=== PATIENT | female | born 1995 | race Caucasian/White ===

== ENCOUNTER 2019-10-28 04:03 | Emergency (ER) | payer MEDICAID ==
[~2019-10-28] VITALS: Ht 160 cm; Wt 98.6 kg
[~2019-10-28 04:03] MED LIST: ARIP5TAB14 PO; ESCI20TA29 PO; IBUP-1985 PO
[2019-10-28 04:07] VITALS: BP 132/96
--- NOTE | 2019-10-28 04:17 | NUR ---
PT BECAME VERY ANXIOUS AND TEARFUL DURING EDMD MURRIETA ASSESSMENT. PT STATES "I JUST WANT TO GO HOME. I JUST WANT TO LEAVE." ATTEMPTED TO TALK WITH PT AND CONTINUE ASSESSMENTS BUT PT INSISTED ON LEAVING.
== END 2019-10-28 04:20 | disposition home or self-care (01) ==
LOC: ER 04:03
DX: F41.9 Anxiety disorder, unspecified (principal); F15.10 Other stimulant abuse, uncomplicated; R00.0 Tachycardia, unspecified; F32.9 Major depressive disorder, single episode, unspecified; Z79.899 Other long term (current) drug therapy
CPT/HCPCS: 93005; 99283

== ENCOUNTER 2019-11-16 16:58 | Emergency (ER) | payer MEDICAID ==
[~2019-11-16] VITALS: Ht 160 cm; Wt 111.0 kg
[2019-11-16 17:47] LABS: BASOPHILS # (AUTO) 0.1 X10'3 (0-0.2); BASOPHILS % (AUTO) 1.2 % (0-1); EOSINOPHILS # (AUTO) 0.2 X10'3 (0-0.9); EOSINOPHILS % (AUTO) 1.7 % (0-6); HEMATOCRIT 33.6 % (35.0-45.0); LYMPHOCYTES # (AUTO) 2.7 X10'3 (1.1-4.8); LYMPHOCYTES % (AUTO) 27.8 % (21-51); MEAN CORPUSCULAR HEMOGLOBIN 26.7 PG (27.0-31.0); MEAN CORPUSCULAR HGB CONC 32.7 g/dL (33.0-36.5); MEAN CORPUSCULAR VOLUME 81.8 FL (78-98); MEAN PLATELET VOLUME 8.8 FL (7.4-10.4); MONOCYTES # (AUTO) 0.9 X10'3 (0-0.9); NEUTROPHILS # (AUTO) 5.8 X10'3 (1.8-7.7); NEUTROPHILS % (AUTO) 60.3 % (42-75); PLATELET COUNT 443 X10'3 (140-440); RED BLOOD COUNT 4.11 X10'6 (4.20-5.60); RED CELL DISTRIBUTION WIDTH 13.1 % (11.5-14.5); WHITE BLOOD COUNT 9.6 X10'3 (4.5-11.0)
[2019-11-16 18:03] LABS: ALANINE AMINOTRANSFERASE 8 U/L (12-78); ALBUMIN 2.8 G/DL (3.4-5.0); ALBUMIN/GLOBULIN RATIO 0.6 (1.1-1.5); ALKALINE PHOSPHATASE 66 IU/L (46-116); ANION GAP 8 (8-16); ASPARTATE AMINO TRANSFERASE 11 U/L (10-37); BILIRUBIN,TOTAL 0.2 MG/DL (0.1-1.0); BLOOD UREA NITROGEN 13 MG/DL (7-18); BUN/CREATININE RATIO 14.1 (6.6-38.0); CALCIUM 8.2 MG/DL (8.5-10.1); CHLORIDE 107 MMOL/L (99-107); CREATININE 0.92 MG/DL (0.40-0.90); GLUCOSE 90 MG/DL (70-104); PARTIAL THROMBOPLASTIN TIME 27 SECONDS (22-32); POTASSIUM 3.5 MMOL/L (3.5-5.1); SODIUM 141 MMOL/L (135-145); TOTAL PROTEIN 7.6 G/DL (6.4-8.2); eGFR 76 ML/MIN
[2019-11-16] MEDS ORDERED: metoprolol tartrate 1mg/ml inj IV ONE (18:30)
[2019-11-16] MEDS ORDERED: furosemide 10 MG/1 ML 10ml inj IV ONE (18:30)
[2019-11-16] MEDS ORDERED: LORazepam 2 mg/ml vial IV ONE (18:30)
[2019-11-16 19:47] LABS: CLARITY,URINE CLOUDY (Clear); COLOR,URINE RED (Yellow); GLUCOSE, URINE NEGATIVE (Neg); KETONES,URINE NEGATIVE (Neg); LEUKOCYTE ESTERASE ,URINE TRACE (Neg); NITRITES, URINE NEGATIVE (Neg); OCCULT BLOOD,URINE LARGE (Neg); PROTEIN,URINE 100 mg/dl (Neg); URINE HCG NEGATIVE (NEG); UROBILINOGEN,URINE 0.2 E.U/dL (0.2-1.0)
[2019-11-16 19:48] LABS: UA COLLECTION TYPE CLN CATCH MIDSTREAM
[2019-11-16 19:54] LABS: RBC,URINE 50-100 /HPF (0-2); WBC,URINE 0-4 /HPF (0-4)
[2019-11-16 19:55] LABS: BACTERIA,URINE 3+ /HPF (Neg); SQUAMOUS EPITHELIAL CELL,UR FEW /LPF (FEW)
[2019-11-16 19:59] LABS: URINE AMPHETAMINE SCREEN NEGATIVE (Neg); URINE BARBITUATE SCREEN NEGATIVE (Neg); URINE BENZODIAZEPINES SCREEN NEGATIVE (Neg); URINE CANNABINOID SCREEN POSITIVE (Neg); URINE COCAINE SCREEN NEGATIVE (Neg); URINE METHADONE SCREEN NEGATIVE (Neg); URINE OPIATE SCREEN NEGATIVE (Neg); URINE PHENCYCLIDINE SCREEN NEGATIVE (Neg)
[2019-11-16] MEDS ORDERED: METO25TA6 PO (20:59)
[2019-11-16] MEDS ORDERED: FURO-149 PO (20:59)
[2019-11-16] MEDS ORDERED: POTA20TA10 PO (20:59)
[2019-11-16 23:03] VITALS: BP 155/95
== END 2019-11-16 21:35 | disposition home or self-care (01) ==
LOC: ER 16:59
DX: I50.9 Heart failure, unspecified (principal); I11.0 Hypertensive heart disease with heart failure; R06.02 Shortness of breath; R10.9 Unspecified abdominal pain; M79.89 Other specified soft tissue disorders; F41.9 Anxiety disorder, unspecified; F32.9 Major depressive disorder, single episode, unspecified; Z79.899 Other long term (current) drug therapy
CPT/HCPCS: 36415; 71045; 74176; 80053; 80305; 81001; 81025; 83880; 84443; 84484; 85025; 85610; 85730; 87088; 93005; 93306; 96374; 96375; 99285; J1940; J2060; J3490

== ENCOUNTER 2019-11-19 10:29 | Inpatient (IN) | payer MEDICAID ==
[~2019-11-19] VITALS: Ht 160 cm; Wt 104.5 kg
[~2019-11-19 10:29] MED LIST changes: +FURO-149 PO; +METO25TA6 PO; +POTA20TA10 PO
[2019-11-19 11:50] LABS: CLARITY,URINE SLIGHTLY CLOUDY (Clear); COLOR,URINE YELLOW (Yellow); GLUCOSE, URINE NEGATIVE (Neg); KETONES,URINE NEGATIVE (Neg); LEUKOCYTE ESTERASE ,URINE SMALL (Neg); NITRITES, URINE NEGATIVE (Neg); OCCULT BLOOD,URINE LARGE (Neg); PROTEIN,URINE 100 mg/dl (Neg); UROBILINOGEN,URINE 0.2 E.U/dL (0.2-1.0)
[2019-11-19 11:52] LABS: URINE HCG NEGATIVE (NEG)
[2019-11-19 11:55] LABS: UA COLLECTION TYPE CLN CATCH MIDSTREAM
[2019-11-19 11:56] LABS: BACTERIA,URINE FEW /HPF (Neg); MUCUS STRANDS FEW /LPF (Neg); RBC,URINE TNTC /HPF (0-2); SQUAMOUS EPITHELIAL CELL,UR MODERATE /LPF (FEW)
[2019-11-19 12:15] LABS: ABG BASE EXCESS 2.1 mmol/L (-2.0-2.0); ABG HCO3 24.7 mmol/L (22.0-26.0); ABG OXYGEN SATURATION 94.6 % (94-97); ABG PCO2 (T) 31.7 mmHg (32.0-45.0); ABG PO2 (T) 67.8 mmHg (75.0-100.0); ALLEN'S TEST POSITIVE; FO2Hb 94.6 % (94-97); TOTAL HEMOGLOBIN 11.8 G/dl (12.0-16.0)
[2019-11-19 12:16] LABS: BASOPHILS # (AUTO) 0.1 X10'3 (0-0.2); BASOPHILS % (AUTO) 1.1 % (0-1); EOSINOPHILS # (AUTO) 0.1 X10'3 (0-0.9); EOSINOPHILS % (AUTO) 1.1 % (0-6); HEMATOCRIT 34.3 % (35.0-45.0); HEMOGLOBIN 11.3 g/dl (12.0-16.0); LYMPHOCYTES # (AUTO) 1.8 X10'3 (1.1-4.8); LYMPHOCYTES % (AUTO) 21.5 % (21-51); MEAN CORPUSCULAR HEMOGLOBIN 26.6 PG (27.0-31.0); MEAN CORPUSCULAR VOLUME 80.7 FL (78-98); MEAN PLATELET VOLUME 8.3 FL (7.4-10.4); MONOCYTES # (AUTO) 0.6 X10'3 (0-0.9); MONOCYTES % (AUTO) 7.4 % (2-12); NEUTROPHILS # (AUTO) 5.8 X10'3 (1.8-7.7); NEUTROPHILS % (AUTO) 68.9 % (42-75); PLATELET COUNT 471 X10'3 (140-440); RED BLOOD COUNT 4.24 X10'6 (4.20-5.60); RED CELL DISTRIBUTION WIDTH 13.2 % (11.5-14.5); WHITE BLOOD COUNT 8.5 X10'3 (4.5-11.0)
[2019-11-19 12:28] LABS: D-DIMER 1.33 MG/L FEU (0-0.50); PARTIAL THROMBOPLASTIN TIME 26 SECONDS (22-32)
[2019-11-19 12:31] LABS: ALANINE AMINOTRANSFERASE 10 U/L (12-78); ALBUMIN 2.9 G/DL (3.4-5.0); ALBUMIN/GLOBULIN RATIO 0.6 (1.1-1.5); ALKALINE PHOSPHATASE 57 IU/L (46-116); ANION GAP 9 (8-16); ASPARTATE AMINO TRANSFERASE 16 U/L (10-37); BILIRUBIN,TOTAL 0.3 MG/DL (0.1-1.0); BLOOD UREA NITROGEN 13 MG/DL (7-18); CALCIUM 8.5 MG/DL (8.5-10.1); CHLORIDE 108 MMOL/L (99-107); CREATININE 0.81 MG/DL (0.40-0.90); GLUCOSE 96 MG/DL (70-104); POTASSIUM 3.7 MMOL/L (3.5-5.1); SODIUM 144 MMOL/L (135-145); TOTAL CARBON DIOXIDE 27.3 MMOL/L (24-32); TOTAL PROTEIN 7.5 G/DL (6.4-8.2); eGFR 88 ML/MIN
[2019-11-19 12:43] LABS: MAGNESIUM 1.6 MG/DL (1.5-2.4)
[2019-11-19] MEDS ORDERED: LISI2.5T2 PO (12:54)
[2019-11-19] MEDS ORDERED: iohexol 350MG/ML 100ml bottle IV ONE (13:39)
--- NOTE | 2019-11-19 14:31 | NUR ---
to ct scan.
[2019-11-19] MEDS ORDERED: furosemide 40mg/4ml inj IV ONE (15:30)
[2019-11-19] MEDS ORDERED: ondansetron/PF 4mg/2ml inj IV PRN (16:35)
[2019-11-19] MEDS ORDERED: mag hydrox/Alum hydrox/simeth 30ml oral suspension PO PRN (16:35)
[2019-11-19] MEDS ORDERED: acetaminophen 325mg tablet PO PRN ×2 (16:35)
[2019-11-19] MEDS ORDERED: nitroGLYCERIN 0.4mg SUBLingual tab SL PRN (16:35)
[2019-11-19] MEDS ORDERED: HYDROcodone/acetaminophen 5mg/325mg tablet PO PRN (16:35)
[2019-11-19] MEDS ORDERED: magnesium hydroxide 30ml (MOM) UD suspension PO PRN (16:35)
[2019-11-19] MEDS ORDERED: morphine 2 MG/ML inj. syringe IV PRN ×2 (16:35)
[2019-11-19] MEDS ORDERED: TOPI25TA15 PO (18:24)
[2019-11-19] MEDS ORDERED: ESCI5TAB PO (18:25)
[2019-11-19 19:25] VITALS: BP 153/89
[2019-11-19] MEDS: metoprolol tartrate 50mg tablet PO SCH (19:57)
[2019-11-19] MEDS: furosemide 40mg/4ml inj IV SCH (19:57)
[2019-11-19] MEDS: HYDROcodone/acetaminophen 10/325mg tab PO PRN (19:58)
[2019-11-19 22:22] VITALS: BP 148/90
[2019-11-20 00:28] LABS: BASOPHILS # (AUTO) 0.1 X10'3 (0-0.2); EOSINOPHILS # (AUTO) 0.1 X10'3 (0-0.9); EOSINOPHILS % (AUTO) 1.7 % (0-6); HEMATOCRIT 32.4 % (35.0-45.0); HEMOGLOBIN 10.9 g/dl (12.0-16.0); LYMPHOCYTES % (AUTO) 33.6 % (21-51); MEAN CORPUSCULAR HEMOGLOBIN 27.4 PG (27.0-31.0); MEAN CORPUSCULAR HGB CONC 33.7 g/dL (33.0-36.5); MEAN CORPUSCULAR VOLUME 81.3 FL (78-98); MEAN PLATELET VOLUME 8.1 FL (7.4-10.4); MONOCYTES # (AUTO) 0.8 X10'3 (0-0.9); MONOCYTES % (AUTO) 9.6 % (2-12); NEUTROPHILS # (AUTO) 4.8 X10'3 (1.8-7.7); NEUTROPHILS % (AUTO) 54.1 % (42-75); PLATELET COUNT 438 X10'3 (140-440); RED BLOOD COUNT 3.98 X10'6 (4.20-5.60); RED CELL DISTRIBUTION WIDTH 13.1 % (11.5-14.5); WHITE BLOOD COUNT 8.8 X10'3 (4.5-11.0)
[2019-11-20 00:43] LABS: ALBUMIN 2.7 G/DL (3.4-5.0); ANION GAP 8 (8-16); BLOOD UREA NITROGEN 15 MG/DL (7-18); BUN/CREATININE RATIO 16.9 (6.6-38.0); CALCIUM 8.2 MG/DL (8.5-10.1); CHLORIDE 104 MMOL/L (99-107); CREATININE 0.89 MG/DL (0.40-0.90); GLUCOSE 91 MG/DL (70-104); POTASSIUM 3.4 MMOL/L (3.5-5.1); SODIUM 140 MMOL/L (135-145); TOTAL CARBON DIOXIDE 28.4 MMOL/L (24-32); TROPONIN I < 0.04 NG/ML (0.0-0.05); eGFR 79 ML/MIN
--- NOTE | 2019-11-20 01:05 | NUR ---
Patient's heart rate went down to 34 and came back up. Patient sleeping.
--- NOTE | 2019-11-20 03:14 | NUR ---
Pt's heart rate went down to 36 and went back up.
[2019-11-20 03:18] VITALS: BP 140/84
[2019-11-20 06:00] VITALS: BP 138/83
--- NOTE | 2019-11-20 06:28 | NUR ---
PAGER ID: [phone] MESSAGE: 309 pt Ramila CONRAD HR [place] to 39 briefly but rebounds quickly with baseline in 70-80s. Also, K is 3.4 this morning, may we have replacement orders? Thank you. - [phone]
[2019-11-20] MEDS ORDERED: potassium Cl 20 mEq SR tablet PO PRN (06:30)
[2019-11-20] MEDS ORDERED: magnesium 4gm in 100ml NS 100 ML IV PRN (06:30)
[2019-11-20] MEDS ORDERED: potassium CL 10mEq/100ml bag 100 ML IV PRN (06:30)
[2019-11-20] MEDS ORDERED: magnesium Cl slow-release 64mg tablet PO PRN (06:30)
--- NOTE | 2019-11-20 06:46 | NUR ---
Patient in room MED 309. I have received report from jocelyn marques and had the opportunity to ask questions and assume patient care.
[2019-11-20] MEDS ORDERED: nitroGLYCERIN 0.4mg/hour patch TD SCH (08:00)
[2019-11-20] MEDS: furosemide 40mg/4ml inj IV SCH ×2 (08:00→20:04)
[2019-11-20] MEDS: metoprolol tartrate 50mg tablet PO SCH (08:02)
[2019-11-20] MEDS: lisinopril 10 MG tablet PO SCH (08:03)
[2019-11-20] MEDS: enoxaparin 40mg/0.4ml syringe SUBCUT SCH (08:05)
[2019-11-20] MEDS: potassium Cl 20 mEq SR tablet PO PRN ×3 (08:07→17:35)
[2019-11-20] MEDS: HYDROcodone/acetaminophen 10/325mg tab PO PRN (10:34)
[2019-11-20 11:00] VITALS: BP 126/89
--- NOTE | 2019-11-20 11:19 | NUR ---
PATIENT STATES VOMIT EPISODES X2, ASSOCIATED NAUSEA, DENIES CP AT THIS TIME, STAT EKG ORDERED: CIGARETTE PACKER PAGED.
--- NOTE | 2019-11-20 11:35 | NUR ---
PAGER ID: [phone] MESSAGE: DR. MELENDREZ, 309/ELVIS, NO CHEST PAIN ON NTG PATCH. K+ 3.4 REPLACING PO. C/O CARMONA, NORCO ADM, AND MOVED NTG PATCH TO TORSO. THEN C/O N/V/DIARRHEA. GAVE ZOFRAN, STAT EKG DONE AND OKAY. CONTINUE NTG PATCH? OSEAS [id number]
[2019-11-20 15:00] VITALS: BP 113/66
--- NOTE | 2019-11-20 15:44 | NUR ---
PAGER ID: [phone] MESSAGE: DR. MELENDREZ, 309/ELVIS, C/O DIARRHEA/N/V ALL AT SAME TIME, CONTINUES TO HAVE 9/10 CARMONA PAIN. HAS BEEN SLEEPING FOR RELIEF, STATES "DON'T FEEL IT WHEN I AM ASLEEP" GAVE LAUREN AT 1124, REBECCA AT 1034. DC NTG PATCH? OR? OSEAS 0109
--- NOTE | 2019-11-20 16:06 | NUR ---
PAGER ID: [phone] MESSAGE: DR. MELENDREZ, 309/ELVIS, ALONG WITH THE N/V, HAVE BEEN REPLACING HER K+ OF 3.4 WITH PO KDUR. HAS RECEIVED 2 DOSES, #3 DUE NOW. BUT I DON'T WANT TO ADM R/T N/V. HOW SHOULD I PROCEDE REGARDING THE RELPACEMENT? OSEAS 1191
--- NOTE | 2019-11-20 16:21 | NUR ---
PAGER ID: [phone] MESSAGE: DR. MELENDREZ, R/T 309/ELVIS, I WANT TO CONFIRM YOU ARE RECEIVING MY PAGES PLEASE. OSEAS CALDERON [id number]. ACCE
[2019-11-20 18:00] VITALS: BP 115/65
--- NOTE | 2019-11-20 18:00 | NUR ---
Patient in room MED 309. I have received report from Melida SARGENT and had the opportunity to ask questions and assume patient care. Addendum: 11/20/19 at 2348 by Bakari Alexandre RN Patient in room MED 309. I have received report from Geraldo SARGENT and had the opportunity to ask questions and assume patient care.
--- NOTE | 2019-11-20 18:33 | NUR ---
Problems reprioritized. Patient report given, questions answered & plan of care reviewed with ROSETTA ESCALERA.
[2019-11-20] MEDS: metoprolol tartrate 25mg tablet PO SCH (20:04)
[2019-11-20 22:00] VITALS: BP 140/80
[2019-11-21 02:00] VITALS: BP 123/78
[2019-11-21 05:17] LABS: BASOPHILS # (AUTO) 0.1 X10'3 (0-0.2); BASOPHILS % (AUTO) 0.8 % (0-1); EOSINOPHILS # (AUTO) 0.2 X10'3 (0-0.9); EOSINOPHILS % (AUTO) 2.3 % (0-6); HEMATOCRIT 32.6 % (35.0-45.0); HEMOGLOBIN 10.8 g/dl (12.0-16.0); LYMPHOCYTES # (AUTO) 2.3 X10'3 (1.1-4.8); LYMPHOCYTES % (AUTO) 30.7 % (21-51); MEAN CORPUSCULAR HEMOGLOBIN 26.8 PG (27.0-31.0); MEAN CORPUSCULAR HGB CONC 33.2 g/dL (33.0-36.5); MEAN CORPUSCULAR VOLUME 80.8 FL (78-98); MEAN PLATELET VOLUME 8.5 FL (7.4-10.4); MONOCYTES # (AUTO) 0.8 X10'3 (0-0.9); MONOCYTES % (AUTO) 11.4 % (2-12); NEUTROPHILS # (AUTO) 4.1 X10'3 (1.8-7.7); NEUTROPHILS % (AUTO) 54.8 % (42-75); PLATELET COUNT 409 X10'3 (140-440); RED BLOOD COUNT 4.04 X10'6 (4.20-5.60); RED CELL DISTRIBUTION WIDTH 12.8 % (11.5-14.5); WHITE BLOOD COUNT 7.4 X10'3 (4.5-11.0)
[2019-11-21 05:31] LABS: ALBUMIN 2.9 G/DL (3.4-5.0); ANION GAP 9 (8-16); BLOOD UREA NITROGEN 17 MG/DL (7-18); BUN/CREATININE RATIO 17.3 (6.6-38.0); CALCIUM 8.5 MG/DL (8.5-10.1); CHLORIDE 103 MMOL/L (99-107); CREATININE 0.98 MG/DL (0.40-0.90); GLUCOSE 94 MG/DL (70-104); POTASSIUM 3.1 MMOL/L (3.5-5.1); SODIUM 141 MMOL/L (135-145); TOTAL CARBON DIOXIDE 29.1 MMOL/L (24-32); eGFR 70 ML/MIN
[2019-11-21 06:00] VITALS: BP 110/55
--- NOTE | 2019-11-21 06:28 | NUR ---
Problems reprioritized. Patient report given, questions answered & plan of care reviewed with Luann SARGENT.
[2019-11-21] MEDS: furosemide 40mg/4ml inj IV SCH (07:44)
[2019-11-21] MEDS: potassium Cl 20 mEq SR tablet PO PRN (07:44)
[2019-11-21] MEDS: metoprolol tartrate 25mg tablet PO SCH (07:44)
[2019-11-21] MEDS: lisinopril 10 MG tablet PO SCH (07:45)
[2019-11-21] MEDS: enoxaparin 40mg/0.4ml syringe SUBCUT SCH (07:45)
[2019-11-21 10:00] VITALS: BP 116/60
--- NOTE | 2019-11-21 11:36 | NUR ---
PAGER ID: [phone] MESSAGE: Criselda avilesanujacarlos. Ambulated 1000 feet with no complaints of SOB. thank you ROSETTA tom ext [phone]
[2019-11-21] MEDS ORDERED: FURO-149 PO (12:02)
[2019-11-21] MEDS ORDERED: LISI10TA4 PO (12:02)
--- NOTE | 2019-11-21 13:40 | NUR ---
Patient stable for discharge per MD orders. All discharge instructions and education reviewed with patient and all questions answered. PIV discontinued, tip intact, patient tolerated well, dressing CDI. All known belongings sent with patient. Patient ambulated to pmv driven by family.
== END 2019-11-21 13:40 | disposition home or self-care (01) | DRG 194 ==
LOC: ER 10:29 → ED HOLD 16:31 → MED 3N 18:30
PROVIDERS: ADMIT Internal Medicine; ATTEND Internal Medicine
DX: I50.813 Acute on chronic right heart failure (principal); J96.01 Acute respiratory failure with hypoxia; E66.01 Morbid (severe) obesity due to excess calories; I27.81 Cor pulmonale (chronic); Z68.41 Body mass index [BMI] 40.0-44.9, adult; F32.9 Major depressive disorder, single episode, unspecified; G47.30 Sleep apnea, unspecified; Z20.828 Contact with and (suspected) exposure to other viral communicable diseases; F41.9 Anxiety disorder, unspecified; Z79.899 Other long term (current) drug therapy
CPT/HCPCS: 36415; 36600; 71045; 71275; 80048; 80053; 81001; 81025; 82803; 83735; 83880; 84484; 85018; 85025; 85379; 85610; 85730; 87081; 87088; 87635; 93005; 99285; G0378; J1650; J1940; J2405; Q9967